=== PATIENT | male | born 1960 | race African-American/Black ===

== ENCOUNTER 2018-02-10 20:14 | Inpatient (IN) | payer OTHER ==
[~2018-02-10] VITALS: Ht 185.4 cm; Wt 113.9 kg
--- NOTE | ~2018-02-10 | HC ---
[facility] [place] [address] CONSULTATION Name: ANGELITA CALDERÓN Room #: 221-P [facility] IN M.R.#: [id number] Admission: 02/10/18 Attend Phys: Marcus Caballero MD Discharge: Date of : 64 Report #: [id number] THIS REPORT FOR: //name// CC: Physician staff Ilya Caballero DATE OF SERVICE: 02/11/2018 REASON FOR CONSULTATION: Persistent fever. HISTORY OF PRESENT ILLNESS: The patient is a 57-year-old with underlying history of diabetes, hypertension, hyperlipidemia, notes 4 days ago, had the acute onset of fever and chills. Myalgias and mild arthralgias with headache associated with the fever. No other issues other than anorexia. REVIEW OF SYSTEMS: Noted. No photophobia, pharyngitis symptoms, rash, arthritis, pleuritis, he has developed nonproductive cough within the last 12 hours, no hemoptysis, no chest pain, denies any GI or complaints. No HIV risk factors. No travel outside the [place]. Works in maintenance. Lives with his and daughter who have been otherwise healthy with no infection issues. Has been treating himself with ibuprofen without improvement. Presented to the outpatient clinic on 02/09/2018 where he was placed on oral antibiotic therapy. I do not know what laboratory were drawn. He is also given a tetanus immunization where he had scratched his left shoulder with a screw while at work. This occurred about 3 weeks ago. Area formed a small scab, which he removed. There was a tip of a screw that he got out of the area. No bloody drainage or pus was identified. He feels it has now healed over and causing no issue. He feels that his strength has been normal. No neurologic issues. Denies any tick bites or insect bites. ALLERGIES: None. MEDICATIONS: As noted on his MAR including now vancomycin and Zosyn. PAST MEDICAL HISTORY: Hypertension, hyperlipidemia, diabetes, left knee surgery. FAMILY HISTORY: Noncontributory. SOCIAL HISTORY: As noted above with no tuberculosis exposure. He is a smoker of cigarettes, no significant alcohol or street drug use. PHYSICAL EXAMINATION: VITAL SIGNS: Temperature is 102.[address] [address] CONSULTATION Name: ANGELITA CALDERÓN Room #: 221-P [facility] IN ..#: [id number] Admission: 02/10/18 Attend Phys: Marcus Caballero MD Discharge: Date of : 64 Report #: [id number] GENERAL: He is having mild chills. NEUROLOGIC: Status was normal. HEENT: Unremarkable. NECK: Supple. No adenopathy. No rash. EXTREMITIES: Left shoulder scar unremarkable. No surrounding erythema or evidence of fluctuance. Area was nontender. LUNGS: Clear. HEART: Regular, without murmur. ABDOMEN: Soft, nontender, no hepatosplenomegaly or mass. GENITOURINARY: External genitalia unremarkable. RECTAL: Not performed. EXTREMITIES: Unremarkable other than limited range of motion in his left knee, which has been chronic. There was no effusion. There was no warmth or tenderness. LABORATORY STUDIES: Sodium 137, potassium 3.1, bicarbonate 26, creatinine 1.3, AST 49, ALT 46, alkaline phosphatase 91, bilirubin 0.4, lactate 1.6. Hemoglobin 12.6, platelet count 168,000, WBC 10.3, differential unremarkable. Urinalysis 2+ protein, few WBCs, few RBCs, few bacteria. Blood and urine cultures are pending. Urine antigen for Legionella, strep pneumo pending. Chest x-ray, left lower lobe infiltrate. CT of the abdomen and pelvis showed left lower lobe infiltrate, otherwise unremarkable. IMPRESSION: A 57-year-old, underlying diabetes, tobacco use, presents with persistent fever. Has evidence of left lower lobe pneumonia, community acquired finding no other end-organ disease. RECOMMENDATIONS: We will treat for typical and atypical respiratory pathogens. Obtain viral respiratory panel. Serial chest x-rays. Await blood culture results. Await urine antigen testing. Currently, he has no oxygen requirements. We will need to follow closely. Monitor blood glucose levels. <ELECTRONICALLY SIGNED> By: Reggie Bates MD 02/12/18 [id number] Reggie Bates MD /nt
[2018-02-10 20:27] VITALS: BP 141/84
[2018-02-10 20:57] LABS: URINE BLOOD 3+ (Negative); URINE COLOR YELLOW; URINE GLUCOSE-RANDOM* NEGATIVE (Negative); URINE KETONES TRACE (Negative); URINE LEUKOCYTES-REFLEX NEGATIVE (Negative); URINE NITRITE-REFLEX NEGATIVE (Negative); URINE PROTEIN (DIPSTICK) 2+ (Negative); URINE SPECIFIC GRAVITY >= 1.030 (1.005-1.035); URINE UROBILINOGEN 0.2 E.U./dl (0.2-1.0)
[2018-02-10 20:59] LABS: ABSOLUTE NEUTROPHILS 9.1 thou/uL (1.4-8.2); BASOPHILS 0.4 % (0.0-2.0); EOSINOPHILS 0.1 % (0.0-3.0); HEMATOCRIT 37.2 % (42.0-52.0); HEMOGLOBIN 12.6 gm/dL (14.0-18.0); LYMPHOCYTES 4.3 % (24.0-44.0); MCHC 33.8 g/dL (28.0-37.0); MCV 79.8 fL (80.0-100.0); MONOCYTES 7.4 % (1.0-8.0); PLATELET COUNT 168 thou/uL (150-400); POLYS 87.8 % (36.0-66.0); RBC 4.66 mil/uL (4.50-6.00); RDW 13.7 % (10.5-14.5); WBC 10.3 thou/uL (4.0-11.0)
[2018-02-10 21:02] LABS: ICTOTEST (BILI CONFIRMATORY) Negative (Negative); URINE BILIRUBIN NEGATIVE (Negative)
[2018-02-10 21:02] LABS: CALCIUM 8.5 mg/dL (8.5-10.1); CREATININE 1.4 mg/dL (0.7-1.3)
[2018-02-10 21:03] LABS: URINE CLARITY SL HAZY
[2018-02-10 21:04] LABS: SQUAMOUS None Seen /LPF (0-3)
[2018-02-10 21:04] LABS: POTASSIUM 2.9 mmol/L (3.5-5.1)
[2018-02-10 21:05] LABS: URINE WBC-REFLEX 0-5 Rare /HPF (0-5)
[2018-02-10 21:06] LABS: CASTS None Seen /LPF (None Seen); CRYSTALS None Seen /LPF (None Seen)
[2018-02-10 21:08] LABS: ALBUMIN 3.4 g/dL (3.4-5.0); TOTAL BILIRUBIN 0.4 mg/dL (<0.1-1.0); TOTAL PROTEIN 8.1 g/dL (6.4-8.2)
[2018-02-10 21:48] VITALS: BP 141/86
[2018-02-10 22:33] VITALS: BP 122/73
[2018-02-11] MEDS ORDERED: GLUCOTROL5 MG PO (00:46)
[2018-02-11] MEDS ORDERED: METFORMIN HCL500 MG PO (00:47)
[2018-02-11] MEDS ORDERED: OMEPRAZOLE20 M2 PO (00:47)
[2018-02-11] MEDS ORDERED: IRON325 PO (00:48)
[2018-02-11] MEDS ORDERED: HYDROCHLOROTHIA25 M2 PO (00:49)
[2018-02-11] MEDS ORDERED: IRBESARTAN300 MG PO (00:49)
[2018-02-11] MEDS ORDERED: FENOFIBRATE160 MG PO (00:50)
[2018-02-11 04:30] VITALS: BP 148/87
[2018-02-11 06:30] LABS: CALCIUM 7.8 mg/dL (8.5-10.1); CREATININE 1.3 mg/dL (0.7-1.3); MAGNESIUM 1.6 mg/dL (1.8-2.4); POTASSIUM 3.1 mmol/L (3.5-5.1)
[2018-02-11 20:30] VITALS: BP 138/80
[2018-02-11 22:27] VITALS: BP 126/84
[2018-02-12 07:48] LABS: ABSOLUTE NEUTROPHILS 7.1 thou/uL (1.4-8.2); BASOPHILS 0.6 % (0.0-2.0); EOSINOPHILS 0.1 % (0.0-3.0); HEMATOCRIT 34.4 % (42.0-52.0); HEMOGLOBIN 11.8 gm/dL (14.0-18.0); LYMPHOCYTES 11.3 % (24.0-44.0); MCH 27.3 pg (26.0-34.0); MCHC 34.3 g/dL (28.0-37.0); MCV 79.5 fL (80.0-100.0); MONOCYTES 8.5 % (1.0-8.0); PLATELET COUNT 175 thou/uL (150-400); POLYS 79.5 % (36.0-66.0); RBC 4.32 mil/uL (4.50-6.00); RDW 13.8 % (10.5-14.5)
[2018-02-12 07:58] VITALS: BP 150/89
[2018-02-12 08:01] LABS: ALBUMIN 2.9 g/dL (3.4-5.0); CALCIUM 8.1 mg/dL (8.5-10.1); MAGNESIUM 2.2 mg/dL (1.8-2.4); POTASSIUM 3.3 mmol/L (3.5-5.1); TOTAL BILIRUBIN 0.3 mg/dL (<0.1-1.0); TOTAL PROTEIN 6.8 g/dL (6.4-8.2)
[2018-02-12 19:55] VITALS: BP 136/90
[2018-02-13 07:11] LABS: HIV ANTIBODY Non Reactive (Non Reactive)
[2018-02-13 07:17] LABS: ABSOLUTE NEUTROPHILS 4.4 thou/uL (1.4-8.2); BASOPHILS 0.7 % (0.0-2.0); EOSINOPHILS 0.7 % (0.0-3.0); HEMATOCRIT 34.4 % (42.0-52.0); HEMOGLOBIN 11.5 gm/dL (14.0-18.0); LYMPHOCYTES 16.3 % (24.0-44.0); MCH 26.7 pg (26.0-34.0); MCHC 33.4 g/dL (28.0-37.0); MONOCYTES 10.3 % (1.0-8.0); PLATELET COUNT 209 thou/uL (150-400); RDW 13.9 % (10.5-14.5); WBC 6.2 thou/uL (4.0-11.0)
[2018-02-13 07:33] LABS: ALBUMIN 2.6 g/dL (3.4-5.0); CALCIUM 8.4 mg/dL (8.5-10.1); CREATININE 0.9 mg/dL (0.7-1.3); POTASSIUM 3.4 mmol/L (3.5-5.1); TOTAL BILIRUBIN 0.3 mg/dL (<0.1-1.0); TOTAL PROTEIN 7.4 g/dL (6.4-8.2)
[2018-02-13 08:37] VITALS: BP 146/98
[2018-02-13 20:33] VITALS: BP 150/89
[2018-02-14 04:53] VITALS: BP 156/106
[2018-02-14 07:13] LABS: HEMATOCRIT 32.9 % (42.0-52.0); MCH 26.7 pg (26.0-34.0); MCHC 33.4 g/dL (28.0-37.0); RBC 4.12 mil/uL (4.50-6.00); RDW 14.2 % (10.5-14.5); WBC 7.2 thou/uL (4.0-11.0)
[2018-02-14 07:27] LABS: ALBUMIN 2.7 g/dL (3.4-5.0); CALCIUM 8.8 mg/dL (8.5-10.1); POTASSIUM 3.1 mmol/L (3.5-5.1); TOTAL BILIRUBIN 0.3 mg/dL (<0.1-1.0); TOTAL PROTEIN 7.1 g/dL (6.4-8.2)
[2018-02-14 08:00] VITALS: BP 140/94
[2018-02-14 20:58] VITALS: BP 152/99
[2018-02-14 22:17] VITALS: BP 165/108
[2018-02-14 23:23] VITALS: BP 140/94
[2018-02-15 07:33] LABS: HEMOGLOBIN 11.5 gm/dL (14.0-18.0); MCH 27.3 pg (26.0-34.0); MCHC 33.9 g/dL (28.0-37.0); MCV 80.4 fL (80.0-100.0); RBC 4.23 mil/uL (4.50-6.00); RDW 13.8 % (10.5-14.5); WBC 5.3 thou/uL (4.0-11.0)
[2018-02-15 07:49] LABS: ALBUMIN 2.9 g/dL (3.4-5.0); POTASSIUM 3.5 mmol/L (3.5-5.1); TOTAL BILIRUBIN 0.3 mg/dL (<0.1-1.0); TOTAL PROTEIN 7.5 g/dL (6.4-8.2)
[2018-02-15 08:29] VITALS: BP 148/104
[2018-02-15] MEDS ORDERED: LEVAQUIN 750 M750 MG PO (14:17)
[2018-02-15] MEDS ORDERED: MUCINEX600 MG PO (14:17)
[2018-02-15 16:30] VITALS: BP 148/104
[2018-02-15 17:08] LABS: HISTOPLASMA MYCELIAL-ID Negative (Negative)
[2018-02-16 00:11] LABS: ADENOVIRUS Negative (Negative); INFLUENZA A Negative (Negative); INFLUENZA B Negative (Negative); METAPNEUMOVIRUS Negative (Negative); PARAINFLUENZA 1 Negative (Negative); PARAINFLUENZA 2 Negative (Negative); PARAINFLUENZA 3 Negative (Negative); RHINOVIRUS Negative (Negative); RSV A Negative (Negative); RSV B Negative (Negative)
[2018-02-16 20:07] LABS: HISTOPLASMA MYCELIAL-CF Negative (Neg:<1:2)
== END 2018-02-15 17:04 | disposition home or self-care (01) | DRG 871 ==
LOC: ER 20:14 → 4E 21:27 → SICU 21:27 → EROBS 21:27 → 4E 22:31 → SICU 02-11 22:15
PROVIDERS: Emergency Medicine; Hospitalist; Internal Medicine; Nurse Practitioner Acute Care; Specialist
DX: A41.9 Sepsis, unspecified organism (principal); J15.8 Pneumonia due to other specified bacteria; N17.9 Acute kidney failure, unspecified; E11.65 Type 2 diabetes mellitus with hyperglycemia; E87.6 Hypokalemia; S41.132A Puncture wound without foreign body of left upper arm, initial encounter; I10 Essential (primary) hypertension; R31.9 Hematuria, unspecified; E83.42 Hypomagnesemia; R59.0 Localized enlarged lymph nodes; K75.9 Inflammatory liver disease, unspecified; D64.9 Anemia, unspecified; E86.0 Dehydration; E78.5 Hyperlipidemia, unspecified; F17.210 Nicotine dependence, cigarettes, uncomplicated; X58.XXXA Exposure to other specified factors, initial encounter; Y93.89 Activity, other specified; Y92.89 Other specified places as the place of occurrence of the external cause; Y99.8 Other external cause status; Z79.84 Long term (current) use of oral hypoglycemic drugs; Z79.899 Other long term (current) drug therapy; Z82.49 Family history of ischemic heart disease and other diseases of the circulatory system; Z82.3 Family history of stroke
CPT/HCPCS: 10084; 15002